=== PATIENT | female | born 1975 | race Hispanic/Latino ===

== ENCOUNTER 2016-10-31 17:44 | Emergency (ER) | payer SELFPAY ==
[2016-10-31 18:01] VITALS: BMI 17.5
[2016-10-31 18:05] VITALS: RESP 16; TEMP 99; O2SAT 100
[2016-10-31 19:24] LABS: ADD MANUAL DIFF? NO
[2016-10-31 19:29] LABS: BASO # 0.02 K/mm3 (0.0-2.0); BASO % 0.3 % (0.0-3.0); EOS # 0.1 (0.0-0.7); EOS % 0.9 % (1.5-5.0); GRAN # 4.33 (1.4-6.5); GRAN % 63.6 % (50.0-68.0); HEMATOCRIT 37.5 % (36.0-48.0); LYMPH # 1.8 (1.2-3.4); LYMPH % 26.2 % (22.0-35.0); MEAN CELL VOLUME 92.6 fL (80.0-105.0); MEAN CORPUSCULAR HEMOGLOBIN 32.1 pg (25.0-35.0); MEAN CORPUSCULAR HGB CONC 34.7 g/dl (31.0-37.0); MEAN PLATELET VOLUME 10.3 fl (7.0-11.0); MONO # 0.6 (0.1-0.6); PLATELET COUNT 206 10^3/uL (120.0-450.0); RED CELL DISTRIBUTION WIDTH 12.2 % (11.5-14.5); WHITE BLOOD COUNT 6.8 10^3/ul (4.5-11.0)
[2016-10-31 19:41] LABS: ALB/GLOB RATIO 1.2 (1.1-1.8); ALKALINE PHOSPHATASE 43 U/L (38-133); ALT/SGPT 28 U/L (7-56); AST/SGOT 22 U/L (15-39); BILIRUBIN,TOTAL 1.2 mg/dL (0.2-1.3); BLOOD UREA NITROGEN 8 mg/dL (7-21); CALCIUM 8.9 mg/dL (8.4-10.5); CARBON DIOXIDE 31 mmol/L (21-33); CHLORIDE 100 mmol/L (98-107); GFR AFRICAN-AMERICAN > 60; GLUCOSE,RANDOM 93 mg/dL (70-110); POTASSIUM 3.9 mmol/L (3.6-5.0); SODIUM 137 mmol/L (132-148); TOTAL PROTEIN 7.6 g/dL (5.8-8.3)
--- NOTE | 2016-10-31 20:19 | ED PDOC ---
Arrival/HPI - General Chief Complaint: Female Genitourinary Time Seen by Provider: 10/31/16 18:53 Historian: Patient - History of Present Illness Narrative History of Present Illness (Text): 10/31/16 21:20 Patient reports 2 day history of initially vaginal spotting however today developed vaginal bleeding with no clots, like her menstrual period, with no abdominal pain. Patient reports positive home 1 week ago. Otherwise: ( -) N/V, (-) fever, (-) urinary symptoms, (-) prior salpingitis, (-) prior ectopic . Has (-) care and (-) prior OB ultrasound. SCHOOL PRINCIPAL HISTORY: 2 Para 0 AB 1 LNMP 09/19 Past Medical History - Provider Review Nursing Documentation Reviewed: Yes - Infectious Disease Hx of Infectious Diseases: None - Tetanus Immunization Tetanus Immunization: Unknown - Past Medical History Past Medical History: No Previous - Cardiac Hx Cardiac Disorders: No - Pulmonary Hx Respiratory Disorders: No - Neurological Hx Neurological Disorder: No - HEENT Hx HEENT Disorder: No Hx Blind: No - Renal Hx Renal Disorder: No - Endocrine/Metabolic Hx Endocrine Disorders: No - Hematological/Oncological Hx Blood Disorders: No - Integumentary Hx Dermatological Disorder: No - Musculoskeletal/Rheumatological Hx Musculoskeletal Disorders: No - Gastrointestinal Hx Gastrointestinal Disorders: No - Genitourinary/Gynecological Hx Genitourinary Disorders: No - Psychiatric Hx Psychophysiologic Disorder: Yes Hx Anxiety: Yes Hx Depression: Yes Hx Emotional Abuse: No Hx Physical Abuse: No Hx Substance Use: No - Past Surgical History Past Surgical History: No Previous - Suicidal Assessment Feels Threatened In Home Enviroment: No Family/Social History - Physician Review Nursing Documentation Reviewed: Yes Family/Social History: No Known Family HX Smoking Status: Heavy Smoker > 10 Cigarettes Daily Hx Alcohol Use: No Hx Substance Use: No Hx Substance Use Treatment: No Allergies/Home Meds Allergies/Adverse Reactions: Allergies No Known Allergies Allergy (Verified 10/31/16 18:01) Home Medications: Home Meds Medication Instructions Recorded Confirmed Unobtainable 10/31/16 10/31/16 Review of Systems - Review of Systems Constitutional: Normal, Fatigue. absent: Weight Change, Fevers Respiratory: Normal. absent: SOB, Cough, Sputum Cardiovascular: Normal. absent: Chest Pain, Palpitations, Edema Gastrointestinal: Normal. absent: Abdominal Pain, Stool Changes, Appetite Changes Genitourinary Female: Normal, Vaginal Bleeding. absent: Dysuria, Frequency, Hematuria Musculoskeletal: Normal. absent: Arthralgias, Back Pain, Neck Pain Skin: Normal. absent: Rash, Pruritis, Skin Lesions Physical Exam - Physical Exam Narrative Physical Exam (Text): 10/31/16 21:22 GENERAL APPEARANCE: Patient is awake, alert, oriented x 3, in no acute distress. SKIN: Warm, dry; (-) cyanosis. EYES: (-) conjunctival pallor. ENMT: Mucous membranes _ moist. NECK: (-) tenderness, (-) stiffness, (-) lymphadenopathy. CHEST AND RESPIRATORY: (-) rales, (-) rhonchi, (-) wheezes; breath sounds equal bilaterally. HEART AND CARDIOVASCULAR: (-) irregularity; (-) murmur, (-) gallop. ABDOMEN AND GI: Soft; (-) tenderness. EXTREMITIES: (-) deformity. NEURO AND PSYCH: Mental status as above; (-) focal findings. Vital Signs Temp Pulse Resp BP Pulse Ox 10/31/16 21:56 69 16 105/59 L 100 10/31/16 18:04 99 F 78 16 106/71 100 Medical Decision Making ED Course and Treatment: 10/31/16 21:23 41 yo F , presents with vaginal bleeding with no clots and no abdominal pain. Plan: -- Labs -- Urinalysis -- Reassess and disposition -- TV US 10/31/16 21:00 Labs reviewed. US shows no IUP, no ectopic. Based on history, exam and diagnostic results plan will be for outpatient follow up, patient advised to return to the ER after 2 days for repeat beta quant. Patient states she fully agrees with and understands discharge instructions. States that she agrees with the plan and disposition. Verbalized and repeated discharge instructions and plan. I have given the patient opportunity to ask any additional questions. Patient advised to return to the ER after 2 days without fail. Return to the emergency room at any time for any new or worsening symptoms. Re-evaluation Time: 21:00 Reassessment Condition: Re-examined, Unchanged (Patient laying in bed in no acute distress. Reports no abdominal pain, no increase in vaginal bleeding with no clots. Abdomen remains soft with no tenderness. ) - Lab Interpretations Lab Results: 10/31/16 19:15 10/31/16 19:15 Lab Results 10/31/16 20:30: Urine Color Light yellow, Urine Appearance Clear, Urine pH 6.5, Ur Specific [place] 1.010, Urine Protein Negative, Urine Glucose (UA) Negative, Urine Ketones Trace H, Urine Blood Large H, Urine Nitrate Negative, Urine Bilirubin Negative, Urine Urobilinogen 0.2, Ur Leukocyte Esterase Negative, Urine RBC 0 - 2, Urine WBC Negative, Ur Epithelial Cells 1 - 3, Urine Bacteria Neg 10/31/16 19:45: Blood Type Confirm A POSITIVE 10/31/16 19:22: Beta HCG, Quant 1011.60 H 10/31/16 19:15: Blood Type A POSITIVE, Antibody Screen Positive, Antibody Identification Non Specific Antibody, BBK History Checked No verified bt 10/31/16 19:15: Sodium 137, Potassium 3.9, Chloride 100, Carbon Dioxide 31, Anion Gap 10, BUN 8, Creatinine 0.6, Est GFR ( Amer) > 60, Est GFR (Non- Af Amer) > 60, Random Glucose 93, Calcium 8.9, Total Bilirubin 1.2, AST 22, ALT 28, Alkaline Phosphatase 43, Total Protein 7.6, Albumin 4.1, Globulin 3.5, Albumin/Globulin Ratio 1.2 10/31/16 19:15: WBC 6.8, RBC 4.05, Hgb 13.0, Hct 37.5, MCV 92.6, MCH 32.1, MCHC 34.7, RDW 12.2, Plt Count 206, MPV 10.3, Gran % 63.6, Lymph % (Auto) 26.2, [place] % (Auto) 9.0 H, Eos % (Auto) 0.9 L, Baso % (Auto) 0.3, Gran # 4.33, Lymph # 1.8 , Curry # 0.6, Eos # 0.1, Baso # 0.02 I have reviewed the lab results: Yes Interpretation: All labs normal - RAD Interpretation Narrative RAD Interpretations (Text): EXAM: US , Transvaginal CLINICAL HISTORY: 41 years old, female; Signs and symptoms; Lmp or gestational age (in weeks): ; Other: Bleeding; ; Additional info: , vaginal bleeding; per patient, positive home test TECHNIQUE: Real-time transvaginal obstetrical ultrasound of the maternal pelvis and a first trimester with image documentation. Transvaginal imaging was used for better evaluation of the fetus and adnexa. EXAM DATE/TIME: 10/31/2016 6:53 PM COMPARISON: There are no prior studies for comparison. FINDINGS: Uterus: Uterus measures approximately 6.4 x 3.4 x 5 cm. Cervix is closed.There is a nabothian cyst in the cervix. Endometrium measures approximately 12 mm in width. Endometrium is mildly heterogeneous. There is no intrauterine gestation. Right ovary: Right ovary measures approximately 2.73 x 1.28 x 1.44 cm. There is a corpus luteum in the right ovary. There are multiple small follicles. There is expected blood flow on Doppler imaging Left ovary: Left ovary measures approximately 2.75 x 1.2 x 1.33 cm.There are multiple small follicles. There is intraovarian blood flow. Adnexa: There are no adnexal masses. There is no free fluid. IMPRESSION: Prominent endometrium, no intrauterine or ectopic gestation identified Correlation with serial beta hCG levels advised Thank you for allowing us to participate in the care of your patient. 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 Disposition/Present on Arrival - Present on Arrival Any Indicators Present on Arrival: No History of DVT/PE: No History of Uncontrolled Diabetes: No Urinary Catheter: No History of Decub. Ulcer: No History Surgical Site Infection Following: None - Disposition Have Diagnosis and Disposition been Completed?: Yes Diagnosis: , Miscarriage Disposition: HOME/ ROUTINE Disposition Time: 21:00 Patient Plan: Discharge Condition: GOOD Discharge Instructions (ExitCare): Threatened Miscarriage (ED), (ED) Print Language: IRISH Additional Instructions: Thank you for letting us take care of you today. You were treated for , vaginal bleeding, consider miscarriage. The emergency medical care you received today was directed at your acute symptoms. Return to the ER after 2 days () without fail for repeat beta quant. Return to the Emergency Department if your symptoms worsen, do not improve, or if you have any other problems. Thank you for allowing the [facility] team to be part of your care today. Referrals: Shar River MD [Primary Care Provider] - Follow up with primary
[2016-10-31 20:40] LABS: PH,URINE 6.5 (4.7-8.0); URINE APPEARANCE CLEAR (CLEAR); URINE BILIRUBIN NEGATIVE (NEGATIVE); URINE BLOOD LARGE (NEGATIVE); URINE COLOR LIGHT YELLOW (YELLOW); URINE GLUCOSE (UA) NEGATIVE (NEGATIVE); URINE KETONE TRACE mg/dL (NEGATIVE); URINE LEUKOCYTE ESTERASE NEGATIVE Leu/uL (NEGATIVE); URINE PROTEIN NEGATIVE mg/dL (<30 mg/dL); URINE UROBILINOGEN 0.2 E.U./dL (<1 E.U./dL)
[2016-10-31 20:47] LABS: URINE BACTERIA NEG (NEG); URINE RBC 0 - 2 /hpf (0-2); URINE WBC NEGATIVE /hpf (0-6)
[2016-10-31 21:56] VITALS: BP 105/59; PULSE 69
== END 2016-10-31 21:56 | disposition home or self-care (01) ==
LOC: ED 17:44
DX: O03.9 Complete or unspecified spontaneous abortion without complication (principal)

== ENCOUNTER 2017-11-09 02:57 | Emergency (ER) | payer MEDICAID ==
[2017-11-09 02:57] VITALS: BMI 17.5
--- NOTE | 2017-11-09 03:36 | ED PDOC ---
Arrival/HPI - General Chief Complaint: Medical Clearance Time Seen by Provider: 11/09/17 03:13 Historian: Patient - History of Present Illness Narrative History of Present Illness (Text): 11/09/17 03:24 Zayra Redding is a 42 year old female, whose past medical history includes substance abuse, who presents to the Emergency department complaining of shakiness. Patient states she recently stopped snorting heroin 3 days go and is now experiencing generalized shakiness. Patient also states she took Trazodone tonight. Patient states she would like to go to detox. Patient denies any fever , chills, chest pain, shortness of breath, nausea, vomiting, diarrhea, urinary symptoms, back pain, neck pain, headache, dizziness, or any other complaints. Symptom Onset: Gradual Symptom Course: Unchanged Activities at Onset: Light Context: Exertion Past Medical History - Provider Review Nursing Documentation Reviewed: Yes - Infectious Disease Hx of Infectious Diseases: None - Tetanus Immunization Tetanus Immunization: Unknown - Past Medical History Past Medical History: No Previous - Cardiac Hx Cardiac Disorders: No - Pulmonary Hx Respiratory Disorders: No - Neurological Hx Neurological Disorder: No - HEENT Hx HEENT Disorder: No Hx Blind: No - Renal Hx Renal Disorder: No - Endocrine/Metabolic Hx Endocrine Disorders: No - Hematological/Oncological Hx Blood Disorders: No - Integumentary Hx Dermatological Disorder: No - Musculoskeletal/Rheumatological Hx Musculoskeletal Disorders: No - Gastrointestinal Hx Gastrointestinal Disorders: No - Genitourinary/Gynecological Hx Genitourinary Disorders: No - Psychiatric Hx Psychophysiologic Disorder: Yes Hx Anxiety: Yes Hx Depression: Yes Hx Emotional Abuse: No Hx Physical Abuse: No Hx Substance Use: Yes (Herion) - Past Surgical History Past Surgical History: No Previous - Anesthesia Hx Anesthesia: No - Suicidal Assessment Feels Threatened In Home Enviroment: No Family/Social History - Physician Review Nursing Documentation Reviewed: Yes Family/Social History: Unknown Family HX Smoking Status: Light Smoker < 10 Cigarettes Daily Hx Alcohol Use: No Hx Substance Use: Yes (Herion) Hx Substance Use Treatment: No Allergies/Home Meds Allergies/Adverse Reactions: Allergies No Known Allergies Allergy (Verified 11/09/17 03:23) Home Medications: Home Meds Medication Instructions Recorded Confirmed No Known Home Med 11/09/17 11/09/17 Review of Systems - Physician Review All systems were reviewed & negative as marked: Yes - Review of Systems Constitutional: Other (+shaky). absent: Fevers Eyes: Normal ENT: Normal Respiratory: Normal. absent: SOB, Cough Cardiovascular: Normal. absent: Chest Pain Gastrointestinal: Normal. absent: Abdominal Pain, Diarrhea, Nausea, Vomiting Genitourinary Female: Normal. absent: Dysuria, Frequency, Hematuria, Urine Output Changes Musculoskeletal: Normal. absent: Back Pain, Neck Pain Skin: Normal. absent: Rash Neurological: Normal. absent: Headache, Dizziness Endocrine: Normal Hemo/Lymphatic: Normal Physical Exam Vital Signs Reviewed: Yes Vital Signs Temp Pulse Resp BP Pulse Ox 11/09/17 03:18 97.7 F 42 L 17 119/77 99 Temperature: Afebrile Blood Pressure: Normal Pulse: Regular Respiratory Rate: Normal Appearance: Positive for: Well-Appearing, Non-Toxic, Comfortable Pain Distress: None Mental Status: Positive for: Alert and Oriented X 3 - Systems Exam Head: Present: Atraumatic, Normocephalic Pupils: Present: PERRL Extroacular Muscles: Present: EOMI Conjunctiva: Present: Normal Mouth: Present: Moist Mucous Membranes Neck: Present: Normal Range of Motion Respiratory/Chest: Present: Clear to Auscultation, Good Air Exchange. No: Respiratory Distress, Accessory Muscle Use Cardiovascular: Present: Regular Rate and Rhythm, Normal S1, S2. No: Murmurs Abdomen: No: Tenderness, Distention, Peritoneal Signs Back: Present: Normal Inspection Upper Extremity: Present: Normal Inspection. No: Cyanosis, Edema Lower Extremity: Present: Normal Inspection. No: Edema Neurological: Present: GCS=15, CN II-XII Intact, Speech Normal Skin: Present: Warm, Dry, Normal Color. No: Rashes Psychiatric: Present: Alert, Oriented x 3, Normal Insight, Normal Concentration Medical Decision Making ED Course and Treatment: 11/09/17 03:24 Impression: 42 year old female complaining of shakiness, has not used heroin 3 days. Plan: -- Ativan -- Reassess and disposition Progress Notes: 11/09/17 06:24 On re-evaluation, patient feels better and is in no acute distress. I have discussed the results and plan with the patient, who expresses understanding. Patient in agreement with plan to be discharged home. Patient is stable for discharge. Patient was instructed to follow up with physician or return if symptoms worsen or new concerning symptoms arise. - Medication Orders Current Medication Orders: Discontinued Medications Lorazepam (Ativan) 2 mg IM ONCE ONE PRN Reason: Protocol Stop: 11/09/17 03:25 Last Admin: 11/09/17 03:47 Dose: 2 mg IM Administration Charges Document 11/09/17 03:47 JORDI (Rec: 11/09/17 03:47 JORDI [id number]) Injection Site MAR Injection Site Left Gluteus Omar Charges for Administration # of IM Administrations 1 - Scribe Statement The provider has reviewed the documentation as recorded by the Mik Gray Provider Scribe Attestation: All medical record entries made by the Scribe were at my direction and personally dictated by me. I have reviewed the chart and agree that the record accurately reflects my personal performance of the history, physical exam, medical decision making, and the department course for this patient. I have also personally directed, reviewed, and agree with the discharge instructions and disposition. Disposition/Present on Arrival - Present on Arrival History of DVT/PE: No History of Uncontrolled Diabetes: No Urinary Catheter: No History of Decub. Ulcer: No History Surgical Site Infection Following: None - Disposition Diagnosis: Heroin withdrawal Disposition: HOME/ ROUTINE Disposition Time: 06:25 Patient Problems: Current Active Problems Problem Status Onset Heroin withdrawal Acute Discharge Instructions (ExitCare): Prescription Drug Abuse (DC) Forms: [employer] (Spanish)
[2017-11-09 06:37] VITALS: BP 99/59; PULSE 88; RESP 18; O2SAT 98
[2017-11-09 06:40] VITALS: TEMP 97.9
== END 2017-11-09 06:37 | disposition home or self-care (01) ==
LOC: ED 02:57
DX: F11.23 Opioid dependence with withdrawal (principal)
CPT/HCPCS: 96372; 99283; J2060

== ENCOUNTER 2017-11-20 03:29 | Emergency (ER) | payer MEDICAID ==
[2017-11-20 03:29] VITALS: BMI 17.5
[2017-11-20 03:45] VITALS: BP 99/81; RESP 18; TEMP 98.4
[2017-11-20 04:07] VITALS: PULSE 82; O2SAT 100
== END 2017-11-20 04:06 | disposition left against medical advice (07) ==
LOC: ED 03:29
DX: Z02.89 Encounter for other administrative examinations (principal); F10.10 Alcohol abuse, uncomplicated

== ENCOUNTER 2018-06-26 10:24 | Emergency (ER) | payer MEDICAID, OTHER ==
[2018-06-26 10:24] VITALS: BMI 17.4
[2018-06-26 11:06] VITALS: RESP 19; TEMP 98
[2018-06-26 11:08] LABS: BASO # 0.06 K/mm3 (0.0-2.0); BASO % 0.5 % (0.0-3.0); EOS # 0.2 (0.0-0.7); EOS % 1.2 % (1.5-5.0); GRAN # 9.53 (1.4-6.5); GRAN % 74.1 % (50.0-68.0); HEMOGLOBIN 14.6 g/dL (12.0-16.0); LYMPH # 2.3 (1.2-3.4); LYMPH % 18.1 % (22.0-35.0); MEAN CELL VOLUME 93.5 fl (80.0-105.0); MEAN CORPUSCULAR HEMOGLOBIN 31.6 pg (25.0-35.0); MEAN CORPUSCULAR HGB CONC 33.8 g/dl (31.0-37.0); MEAN PLATELET VOLUME 10.4 fl (7.0-11.0); MONO # 0.8 (0.1-0.6); MONO % 6.1 % (1.0-6.0); RBC 4.62 10^6/uL (3.5-6.1); RED CELL DISTRIBUTION WIDTH 12.1 % (11.5-14.5); WHITE BLOOD COUNT 12.9 10^3/uL (4.5-11.0)
[2018-06-26 11:09] LABS: URINE BILIRUBIN NEGATIVE (NEGATIVE); URINE BLOOD NEGATIVE (NEGATIVE); URINE GLUCOSE (UA) NEGATIVE (NEGATIVE); URINE LEUKOCYTE ESTERASE NEGATIVE Leu/uL (NEGATIVE); URINE PROTEIN TRACE mg/dL (<30 mg/dL); URINE UROBILINOGEN 0.2 E.U./dL (<1 E.U./dL)
[2018-06-26 11:10] LABS: URINE APPEARANCE CLEAR (CLEAR); URINE COLOR YELLOW (YELLOW)
[2018-06-26 11:13] LABS: HCG,QUALITATIVE URINE NEGATIVE (NEGATIVE)
[2018-06-26 11:13] LABS: ALB/GLOB RATIO 1.3 (1.1-1.8); ALBUMIN 4.6 g/dL (3.0-4.8); ALT/SGPT 28 U/L (7-56); AST/SGOT 26 U/L (14-36); BLOOD UREA NITROGEN 13 mg/dL (7-21); CALCIUM 10.9 mg/dL (8.4-10.5); GFR NON-AFRICAN AMERICAN > 60; LIPASE 145 U/L (23-300)
--- NOTE | 2018-06-26 11:15 | ED PDOC ---
Arrival/HPI - General Chief Complaint: Abdominal Pain Time Seen by Provider: 06/26/18 10:36 Historian: Patient - History of Present Illness Narrative History of Present Illness (Text): 06/26/18 11:12 42-year-old female presents today with a 2-3 day history of worsening sharp stabbing epigastric pain. Patient states prior to the onset of pain she was taking multiple Excedrin for headaches. Patient states initially she thought the pain was heartburn and she described a feeling burning going up into the chest. Patient states over the past 2 days the pain has worsened. Patient states she's been having nausea and multiple episodes of vomiting. No diarrhea. Patient states she has not been able to eat because she is afraid the pain worsened. She is complaining of sharp back pain. She denies dysuria or urinary frequency. She denies chest pain or shortness of breath. Patient denies headache at present time. No neck pain. Past Medical History - Provider Review Nursing Documentation Reviewed: Yes - Travel History Have you recently traveled outside [place] w/in the past 3 mons?: No - Infectious Disease Hx of Infectious Diseases: None - Tetanus Immunization Tetanus Immunization: Unknown - Reproductive Menopause: No - Past Medical History Past Medical History: No Previous - Cardiac Hx Hypertension: No - Pulmonary Hx Tuberculosis: No - Neurological Hx Seizures: No - HEENT Hx HEENT Disorder: No Hx Blind: No - Renal Hx Renal Disorder: No - Endocrine/Metabolic Hx Endocrine Disorders: No - Hematological/Oncological Hx Cancer: No - Integumentary Hx Dermatological Disorder: No - Musculoskeletal/Rheumatological Hx Falls: No - Gastrointestinal Hx Gastrointestinal Disorders: No - Genitourinary/Gynecological Hx Sexually Transmitted Diseases: No - Psychiatric Hx Anxiety: Yes Hx Depression: Yes Hx Substance Use: Yes (stopped) - Past Surgical History Past Surgical History: No Previous - Anesthesia Hx Anesthesia: No - Suicidal Assessment Feels Threatened In Home Enviroment: No Family/Social History - Physician Review Nursing Documentation Reviewed: Yes Family/Social History: Unknown Family HX Smoking Status: Current Some Days Smoker Hx Alcohol Use: No Hx Substance Use: Yes (stopped) Substance used: heroine Hx Substance Use Treatment: No Allergies/Home Meds Allergies/Adverse Reactions: Allergies No Known Allergies Allergy (Verified 04/12/18 11:15) Review of Systems - Review of Systems Constitutional: absent: Fatigue, Fevers Respiratory: absent: SOB, Cough Cardiovascular: absent: Chest Pain, Palpitations Gastrointestinal: Abdominal Pain, Nausea, Vomiting. absent: Constipation, Diarrhea Genitourinary Female: absent: Dysuria, Frequency, Hematuria Musculoskeletal: Back Pain. absent: Arthralgias, Neck Pain Skin: absent: Rash, Pruritis Neurological: absent: Headache, Dizziness Psychiatric: absent: Depression, Suicidal Ideation Physical Exam Vital Signs Reviewed: Yes Vital Signs Temp Pulse Resp BP Pulse Ox 06/26/18 11:02 98 F 55 L 19 148/78 99 06/26/18 10:32 97.9 F 59 L 18 115/81 98 Temperature: Afebrile Blood Pressure: Normal Pulse: Bradycardic Respiratory Rate: Normal Appearance: Positive for: Well-Appearing, Non-Toxic, Comfortable Pain Distress: None Mental Status: Positive for: Alert and Oriented X 3 - Systems Exam Head: Present: Atraumatic Mouth: Present: Moist Mucous Membranes Neck: Present: Normal Range of Motion Respiratory/Chest: Present: Clear to Auscultation, Good Air Exchange. No: Respiratory Distress, Accessory Muscle Use Cardiovascular: Present: Regular Rate and Rhythm, Normal S1, S2. No: Murmurs Abdomen: Present: Tenderness (+ epigastric tenderness). No: Distention, Peritoneal Signs, Rebound, Guarding, Hernias Back: Present: Normal Inspection. No: CVA Tenderness, Midline Tenderness, Paraspinal Tenderness Upper Extremity: Present: Normal ROM Lower Extremity: Present: Normal ROM Neurological: Present: GCS=15, Speech Normal Skin: Present: Warm, Dry, Normal Color. No: Rashes Psychiatric: Present: Alert, Oriented x 3 Medical Decision Making ED Course and Treatment: 06/26/18 11:49 Patient is nontoxic well appearing with stable vital signs presenting with [severe] abdominal pain CBC wnl CMP wnl Lipase wnl Urinalysis wnl Ultrasound:FINDINGS: LIVER: Measures 15 cm in sagittal dimension and appears within normal limits of size, shape, and echotexture. No focal hepatic mass identified. The main portal vein appears patent with normal directional flow. No intrahepatic bile duct dilatation. GALLBLADDER: No gallstones. No gallbladder wall thickening. Negative sonographic Browning's sign as assessed by the lens gauger. COMMON BILE DUCT: Measures 3 mm. PANCREAS: Not well visualized. RIGHT KIDNEY: Measures 10.6 x 3.5 x 5.1 cm. No obstructing calculus or hydronephrosis identified. LEFT KIDNEY: Measures 10.4 x 4.8 x 5.2 cm. No obstructing calculus or hydronephrosis identified. SPLEEN: Measures approximately 9.4 cm. AORTA: Limited views appear unremarkable. IVC: Limited views appear unremarkable. OTHER FINDINGS: None. IMPRESSION: Unremarkable abdominal sonogram with findings as above CAT scan:FINDINGS: LOWER THORAX: Unremarkable. LIVER: Unremarkable. No gross lesion or ductal dilatation. GALLBLADDER AND BILE DUCTS: Unremarkable. PANCREAS: Unremarkable. No gross lesion or ductal dilatation. SPLEEN: Unremarkable. ADRENALS: Unremarkable. No mass. KIDNEYS AND URETERS: Unremarkable. No hydronephrosis. No solid mass. VASCULATURE: Unremarkable. No aortic aneurysm. No aortic atherosclerotic calcification or mural plaque present. BOWEL: Unremarkable. No obstruction. No gross mural thickening. There is moderate constipation APPENDIX: Normal appendix. PERITONEUM: Unremarkable. No free fluid. No free air. LYMPH NODES: Unremarkable. No enlarged lymph nodes. BLADDER: Unremarkable. REPRODUCTIVE: Unremarkable. BONES: No acute fracture. OTHER FINDINGS: None. IMPRESSION: No acute intra-abdominal findings. Moderate constipation cxr; wnl Patient reassessment: pt feeling better Discussed all results with patient in depth. Advised avoiding NSAIDs, advised avoiding coffee, spicy foods, caffeine, chocolate, Pasta sauce. Advised follow-up with the GI specialist within the next 2 days taking Pepcid daily and return immediately if symptoms worsen persist or if new concerning sy mptoms develop Patient verbalizes understanding of discharge instructions and need for immediate followup. all aspects of this case were discussed the attending of record. Impression: Abdominal pain tylenol every 6 hours as needed for pain. Pepcid one tablet daily Follow up with primary care physician within the next 2 days Follow up with the GI specialist within the next 2 days. Return immediately if symptoms worsen persist or if new symptoms develop: High fevers, increasing pain, vomiting, diarrhea or any other concerning symptoms develop 06/26/18 13:36 Reassessment Condition: Re-examined, Improved - Lab Interpretations Lab Results: 06/26/18 10:45 Lab Results 06/26/18 10:59: Urine Color Yellow, Urine Appearance Clear, Urine pH 8.0, Ur Specific Cedar 1.025, Urine Protein Trace H, Urine Glucose (UA) Negative, Urine Ketones Negative, Urine Blood Negative, Urine Nitrate Negative, Urine Bilirubin Negative, Urine Urobilinogen 0.2, Ur Leukocyte Esterase Negative, Urine RBC Pending, Urine WBC Pending, Urine HCG, Qual Pending 06/26/18 10:45: WBC 12.9 H, RBC 4.62, Hgb 14.6, Hct 43.2, MCV 93.5, MCH 31.6, M CHC 33.8, RDW 12.1, Plt Count 272, MPV 10.4, Gran % 74.1 H, Lymph % (Auto) 18.1 L, Cavalier % (Auto) 6.1 H, Eos % (Auto) 1.2 L, Baso % (Auto) 0.5, Gran # 9.53 H, Lymph # (Auto) 2.3, Cavalier # (Auto) 0.8 H, Eos # (Auto) 0.2, Baso # (Auto) 0.06 - RAD Interpretation Radiology Orders: 06/26/18 11:06 ABDOMEN COMPLETE [US] Stat - Medication Orders Current Medication Orders: Discontinued Medications Ondansetron HCl (Zofran Inj) 4 mg IVP STAT STA Stop: 06/26/18 11:06 Last Admin: 06/26/18 11:10 Dose: 4 mg IVP Administration Document 06/26/18 11:10 GMI (Rec: 06/26/18 11:11 [facility] [id number]) Charges for Administration # of IVP Administrations 1 Pantoprazole Sodium (Protonix Inj) 40 mg IVP STAT STA Stop: 06/26/18 11:06 Disposition/Present on Arrival - Present on Arrival Any Indicators Present on Arrival: No History of DVT/PE: No History of Uncontrolled Diabetes: No Urinary Catheter: No History of Decub. Ulcer: No History Surgical Site Infection Following: None - Disposition Have Diagnosis and Disposition been Completed?: Yes Diagnosis: Abdominal pain, Constipation Disposition: HOME/ ROUTINE Disposition Time: 12:30 Patient Plan: Discharge Condition: GOOD Discharge Instructions (ExitCare): Constipation, Adult (DC), Constipation in Adults, Acute Abdomen (Belly Pain), Adult (DC) Additional Instructions: tylenol every 6 hours as needed for pain. Pepcid one tablet daily Follow up with primary care physician within the next 2 days Follow up with the GI specialist within the next 2 days. Return immediately if symptoms worsen persist or if new symptoms develop: High fevers, increasing pain, vomiting, diarrhea or any other concerning symptoms develop Prescriptions: Famotidine [Pepcid] 20 mg PO DAILY #30 tab Referrals: Zachary Berger MD [Medical Doctor] - Follow up with primary Mary Castañeda MD [Medical Doctor] - Follow up with primary [facility] [Outside] - Follow up with primary Forms: [facility] (Gabonese), WORK NOTE
[2018-06-26 11:23] LABS: TROPONIN I < 0.01 ng/mL
[2018-06-26 11:24] LABS: URINE AMORPHOUS SEDIMENT MANY /hpf; URINE EPITHELIAL CELLS 0 - 2 /hpf (0-5); URINE RBC NEGATIVE /hpf (0-2); URINE WBC NEGATIVE /hpf (0-6)
[2018-06-26] MEDS ORDERED: Iohexol 350 MG/100 ML VIAL ONE (11:42)
--- NOTE | 2018-06-26 11:43 | US ---
HISTORY: epigastric abd pain COMPARISON: None available. TECHNIQUE: Sonographic evaluation of the abdomen. FINDINGS: LIVER: Measures 15 cm in sagittal dimension and appears within normal limits of size, shape, and echotexture. No focal hepatic mass identified. The main portal vein appears patent with normal directional flow. No intrahepatic bile duct dilatation. GALLBLADDER: No gallstones. No gallbladder wall thickening. Negative sonographic Browning's sign as assessed by the multicut line operator. COMMON BILE DUCT: Measures 3 mm. PANCREAS: Not well visualized. RIGHT KIDNEY: Measures 10.6 x 3.5 x 5.1 cm. No obstructing calculus or hydronephrosis identified. LEFT KIDNEY: Measures 10.4 x 4.8 x 5.2 cm. No obstructing calculus or hydronephrosis identified. SPLEEN: Measures approximately 9.4 cm. AORTA: Limited views appear unremarkable. IVC: Limited views appear unremarkable. OTHER FINDINGS: None. IMPRESSION: Unremarkable abdominal sonogram with findings as above.
--- NOTE | 2018-06-26 12:38 | CT ---
Date of service: 06/26/2018 PROCEDURE: CT Abdomen and Pelvis with contrast HISTORY: abd pain COMPARISON: None. TECHNIQUE: Contrast dose: Radiation dose: Total exam DLP = 219.96 mGy-cm. This CT exam was performed using one or more of the following dose reduction techniques: Automated exposure control, adjustment of the mA and/or kV according to patient size, and/or use of iterative reconstruction technique. FINDINGS: LOWER THORAX: Unremarkable. LIVER: Unremarkable. No gross lesion or ductal dilatation. GALLBLADDER AND BILE DUCTS: Unremarkable. PANCREAS: Unremarkable. No gross lesion or ductal dilatation. SPLEEN: Unremarkable. ADRENALS: Unremarkable. No mass. KIDNEYS AND URETERS: Unremarkable. No hydronephrosis. No solid mass. VASCULATURE: Unremarkable. No aortic aneurysm. No aortic atherosclerotic calcification or mural plaque present. BOWEL: Unremarkable. No obstruction. No gross mural thickening. There is moderate constipation APPENDIX: Normal appendix. PERITONEUM: Unremarkable. No free fluid. No free air. LYMPH NODES: Unremarkable. No enlarged lymph nodes. BLADDER: Unremarkable. REPRODUCTIVE: Unremarkable. BONES: No acute fracture. OTHER FINDINGS: None. IMPRESSION: No acute intra-abdominal findings. Moderate constipation
--- NOTE | 2018-06-26 14:07 | RAD ---
Date of service: 06/26/2018 HISTORY: abd pain COMPARISON: No prior. FINDINGS: LUNGS: No active pulmonary disease. PLEURA: No significant pleural effusion identified, no pneumothorax apparent. CARDIOVASCULAR: No aortic atherosclerotic calcification present. Normal cardiac size. No pulmonary vascular congestion. OSSEOUS STRUCTURES: No significant abnormalities. VISUALIZED UPPER ABDOMEN: Normal. OTHER FINDINGS: None. IMPRESSION: No active disease.
[2018-06-26 14:14] VITALS: BP 129/53; PULSE 85; O2SAT 100
--- NOTE | 2018-06-26 16:04 | CARD ---
APPROVED REPORT Date of service: 06/26/2018 EKG Measurement Heart [id number] <Conclusion> Sinus bradycardia Otherwise normal ECG
== END 2018-06-26 14:14 | disposition home or self-care (01) ==
LOC: ED 10:24
DX: R10.9 Unspecified abdominal pain (principal); K59.00 Constipation, unspecified; F41.9 Anxiety disorder, unspecified
CPT/HCPCS: 71045; 74177; 76700; 80053; 81001; 82550; 83615; 83690; 84484; 84703; 85025; 93005; 96374; 96375; 99284; C9113; J2405; Q9967